=== PATIENT | female | born 1975 | race Asian ===

== ENCOUNTER → 2019-05-21 10:54 | Outpatient (CLI) | payer BC, SELFPAY ==
--- NOTE | 2019-05-21 11:00 | CT_ITS ---
STUDY: CT MAXILLOFACIAL SINUSES REASON FOR EXAM: Female, 43 years old. Facial pain RADIATION DOSAGE (If Supplied By Facility): CTDIvol = ( 33.06 ) mGy, DLP = ( 722.28 ) mGycm TECHNIQUE: The patient was scanned in a multi detector CT scanner. High resolution axial imaging was performed without the administration of intravenous contrast material. Sagittal and coronal images were reconstructed. Individualized dose optimization techniques were used for this CT. COMPARISON: None. FINDINGS: FRONTAL SINUSES: Frontal sinuses are diminutive. ETHMOIDAL SINUSES: Is minimal ethmoid sinus mucosal thickening. MAXILLARY SINUSES: Normal aeration, without mucosal inflammatory disease. SPHENOIDAL SINUSES: Normal aeration, without mucosal inflammatory disease. There is patency of the bilateral maxillary infundibuli with normal uncinate processes, ethmoid bullae, and hiatus semilunaris. Normal bilateral middle turbinates. Normal bilateral inferior turbinates. Normal midline nasal septum. There is patency of the bilateral nasal airways. There is a visualized nasal bone prosthesis. The visualized osseous structures are normal. The visualized bilateral orbital contents are normal. The visualized cerebral and middle spheres appear grossly normal. The ventricles are symmetric there is no visualized midline shift edema or visualized hemorrhage. CT/Sinus/Facial Bone IMPRESSION: Minimal sinusitis ethmoid sinuses. Nasal bone prosthesis. The visualized brain parenchyma appears grossly normal. Electronically Signed: Ana Maria Colón MD at 11:54 EDT Tel , Service support ,
== END ==
LOC: CT 10:57
PROVIDERS: Referring Provider Otolaryngology; Visit Provider Otolaryngology
DX: R51 Headache (principal)
CPT/HCPCS: 70486

== ENCOUNTER → 2019-09-30 11:22 | Outpatient (CLI) | payer BC, SELFPAY ==
[2015-07-30 16:13] VITALS: BMI 26.1
[2019-09-30 14:25] LABS: Absolute Lymphocyte Count 2.98 X10^3/uL (0.83-4.51); Absolute Neutrophil Count 5.8 X10^3/uL (2.0-7.7); Basophil# 0.07 X10^3/uL; Basophil% 0.6 % (0-1); Hematocrit 42.5 % (37-47); Hemoglobin 13.6 g/dL (12.0-15.0); Lymphocyte # 2.98 X10^3/ul (4.0); Lymphocyte % 27.5 % (19-41); Mean Corpuscular Hgb 27.9 pg (27.0-32.0); Mean Corpuscular Volume 87.3 fL (81-99); Mean Platelet Vol. 10.1 fl (6.2-12.0); Monocyte# 0.64 X10^3/uL; Monocyte% 5.9 % (0-10); NRBC Flagged by Analyzer 0 % (0-5); Neutrophil # 5.78 X10^3/uL (2.7-7.7); Neutrophil % 53.4 % (47-70); Platelet Count 408 K/mm3 (150-450); RBC Distribution Width CV 13.3 % (11.6-14.6); RBC Distribution Width SD 42.6 fl (35.1-43.9); Red Blood Count 4.87 M/mm3 (4.2-5.4); White Blood Count 10.8 K/mm3 (4.4-11.0)
[2019-09-30 14:41] LABS: Vitamin B12 720 pg/mL (211-911)
[2019-09-30 14:43] LABS: AST(SGOT) 18 U/L (15-37); Alanine Aminotransfer ALT/SGPT 34 U/L (13-56); Albumin, Serum 3.8 g/dL (3.2-5.0); Alkaline Phosphatase 42 U/L (45-117); Anion Gap 4 (5-15); BUN 14 mg/dL (7-18); Calcium,Total 8.6 mg/dL (8.5-10.1); Chloride 110 mmol/L (98-107); Creatinine, Serum 0.61 mg/dL (0.55-1.02); EST Glomerular Filtration Rate 113 mL/min (>60); Est Glom Filt Rate - Afr Amer 137 mL/min (>60); Ferritin 48 ng/mL (8-252); Globulin 3.7 g/dL (2.2-4.2); Glucose 77 mg/dL (74-106); Iron 114 ug/dL (50-170); Iron Binding Capacity,Total 311 ug/dL (250-450); Potassium 3.7 mmol/L (3.5-5.1); Protein, Total 7.5 g/dL (6.4-8.2); Sodium Level 140 mmol/L (136-145); Thyroid Stim Hormone (TSH) 1.51 uIU/mL (0.358-3.74)
== END ==
PROVIDERS: PCP Family Medicine; Referring Provider Family Medicine; Visit Provider Family Medicine
DX: R42 Dizziness and giddiness (principal); R30.0 Dysuria; R45.89 Other symptoms and signs involving emotional state; I10 Essential (primary) hypertension; N93.9 Abnormal uterine and vaginal bleeding, unspecified
CPT/HCPCS: 36415; 80053; 82607; 82728; 83540; 83550; 84443; 85025; 87077; 87086; 87088; 87186

== ENCOUNTER → 2019-10-03 10:19 | Outpatient (CLI) | payer BC, SELFPAY ==
--- NOTE | 2019-10-03 10:24 | US_ITS ---
STUDY: ULTRASOUND OF THE FEMALE PELVIS - COMPLETE REASON FOR EXAM: Female, 44 years old. PELVIC PAIN/ BLEEDING DURING INTERCOURSE LMP: Unknown. TECHNIQUE: Transvaginal TECHNICAL QUALITY: Adequate. COMPARISON: None. FINDINGS: The uterus is anteverted and is in a midline position. The uterus measures 7.87 x 5.8 cm x 5.2 cm. There is a Nabothian cyst of the cervix. The endometrium measures 8 mm in thickness, and is hyperechoic. There is no demonstrated endometrial mass. There is a 1.3 cm x 1.6 cm x 1.4 cm fundal fibroid. There is heterogeneous echotexture of the myometrium of the uterus. I.U.D. - The patient does not have an I.U.D. The right ovary is visualized. The right ovary measures 3.3 cm x 2.8 cm x 1.3 cm. There is no right ovarian cyst or ovarian mass. There is no visualized right adnexal mass or complex lesion. There is normal arterial and normal venous vascularity. The left ovary is visualized. The left ovary measures 3 cm x 2.8 cm x 1.3 cm. There is no left ovarian cyst or ovarian mass. There is no visualized left adnexal mass or complex lesion. There is normal arterial and normal venous vascularity. There is no fluid in the cul-de-sac. Polycystic ovary disease: No. US/Transvaginal Non- IMPRESSION: Small fundal fibroid. Electronically Signed: Bautista Mckinney, at 15:25 EST , Service support ,
[2019-10-07 03:06] LABS: Beef <0.10 kU/L (Class 0); Corn <0.10 kU/L (Class 0); Egg, Whole <0.10 kU/L (Class 0); Milk (Cow) <0.10 kU/L (Class 0); Peanut <0.10 kU/L (Class 0); Pork <0.10 kU/L (Class 0); Soybean <0.10 kU/L (Class 0); Wheat 0.12 kU/L (Class 0/I)
[2019-10-07 05:06] LABS: Alternaria tenuis <0.10 kU/L (Class 0); Ash, White 0.12 kU/L (Class 0/I); Aspergillus fumigatus <0.10 kU/L (Class 0); Bermuda Grass 0.19 kU/L (Class 0/I); Birch <0.10 kU/L (Class 0); Black Walnut <0.10 kU/L (Class 0); Cat Hair / Dander,Stand <0.10 kU/L (Class 0); Cedar, Mountain 0.14 kU/L (Class 0/I); Cladosporium herbarum <0.10 kU/L (Class 0); Cockroach, American 0.61 kU/L (Class II); Cottonwood <0.10 kU/L (Class 0); D farinae Mite 0.36 kU/L (Class I); Dog Epithelia <0.10 kU/L (Class 0); Elm, American White <0.10 kU/L (Class 0); Immunoglobulin E 214 IU/mL (6-495); Maple/Box Elder <0.10 kU/L (Class 0); Mulberry, White <0.10 kU/L (Class 0); Oak, White <0.10 kU/L (Class 0); Pecan <0.10 kU/L (Class 0); Penicillium Notatum <0.10 kU/L (Class 0); Pigweed, Rough <0.10 kU/L (Class 0); Ragweed, Short/Common 0.14 kU/L (Class 0/I); Russian Thistle 0.17 kU/L (Class 0/I); Sheep Sorrel 0.23 kU/L (Class 0/I); Sycamore, American 0.12 kU/L (Class 0/I); Timothy Grass 0.13 kU/L (Class 0/I)
[2019-10-07 11:27] LABS: Mouse Urine <0.10 kU/L (Class 0)
[2019-10-07 11:28] LABS: Chocolate <0.10 kU/L (Class 0)
== END ==
LOC: US 10:21
PROVIDERS: PCP Family Medicine; Referring Provider Family Medicine; Visit Provider Family Medicine
DX: N93.9 Abnormal uterine and vaginal bleeding, unspecified (principal); R30.0 Dysuria
CPT/HCPCS: 36415; 76830; 82785; 86003; 86005; 87177; 87209

== ENCOUNTER → 2020-04-19 10:25 | Outpatient (CLI) | payer MEDICAID, SELFPAY ==
[2015-07-30 16:13] VITALS: BMI 26.1
[2020-04-19 12:25] LABS: Absolute Lymphocyte Count 2.92 X10^3/uL (0.83-4.51); Absolute Neutrophil Count 4.6 X10^3/uL (2.0-7.7); Eosinophil# 1.57 X10^3/uL; Eosinophils% 16.1 % (0-5); Hematocrit 43.8 % (37-47); Hemoglobin 14.3 g/dL (12.0-15.0); Lymphocyte # 2.92 X10^3/ul (4.0); Lymphocyte % 29.9 % (19-41); Mean Corp Hgb Conc 32.6 g/dL (32-36); Mean Corpuscular Hgb 28.1 pg (27.0-32.0); Mean Corpuscular Volume 86.1 fL (81-99); Mean Platelet Vol. 9.9 fl (6.2-12.0); Monocyte# 0.51 X10^3/uL; Monocyte% 5.2 % (0-10); NRBC Flagged by Analyzer 0 % (0-5); Neutrophil % 47.1 % (47-70); Platelet Count 444 K/mm3 (150-450); RBC Distribution Width CV 13.2 % (11.6-14.6); RBC Distribution Width SD 41.6 fl (35.1-43.9); Red Blood Count 5.09 M/mm3 (4.2-5.4); White Blood Count 9.8 K/mm3 (4.4-11.0)
[2020-04-19 12:51] LABS: ALB/GLOB Ratio 0.9 RATIO (0.9-2.4); AST(SGOT) 49 U/L (15-37); Alanine Aminotransfer ALT/SGPT 81 U/L (13-56); Albumin, Serum 3.9 g/dL (3.2-5.0); Alkaline Phosphatase 55 U/L (45-117); Anion Gap 6 (5-15); BUN 10 mg/dL (7-18); BUN/Creat Ratio 15.8 RATIO (10-20); Calcium,Total 8.5 mg/dL (8.5-10.1); Chloride 109 mmol/L (98-107); Creatinine, Serum 0.63 mg/dL (0.55-1.02); EST Glomerular Filtration Rate 108 mL/min (>60); Est Glom Filt Rate - Afr Amer 131 mL/min (>60); Globulin 4.2 g/dL (2.2-4.2); Glucose 91 mg/dL (74-106); Potassium 3.5 mmol/L (3.5-5.1); Protein, Total 8.1 g/dL (6.4-8.2); Sodium Level 139 mmol/L (136-145); Thyroid Stim Hormone (TSH) 1.62 uIU/mL (0.358-3.74)
== END ==
PROVIDERS: PCP Family Medicine; Referring Provider Family Medicine; Visit Provider Family Medicine
DX: R35.8 Other polyuria (principal)
CPT/HCPCS: 36415; 80053; 84443; 85025

== ENCOUNTER → 2020-10-15 16:10 | Outpatient (CLI) | payer MEDICAID, SELFPAY ==
[2015-07-30 16:13] VITALS: BMI 26.1
[2020-10-15 16:17] LABS: Bacteria 0 SEEN /hpf (None Seen); Mucous, Urine 0 SEEN /hpf (<or=2+); Red Blood Cells-Urine 0 SEEN /hpf (0-5); White Blood Cells 0 SEEN /hpf (0-5)
[2020-10-15 18:37] LABS: Color, Urine Yellow (Yellow); Glucose, Dipstick Normal (Normal); Ketone-Dipstick Negative (Negative); Leukocyte Esterase-Dipstick Negative /ul (Negative); Nitrite-Dipstick Negative (Negative); Occult Blood-Urine 10 /ul (Negative); Protein-Dipstick Negative (Negative); Urine Bilirubin Dipstick Negative (Negative); Urine Clarity Clear (Clear); Urine Urobilinogen Normal (Normal)
[2020-10-15 18:59] LABS: Squamous Epithelial Cells - UA 0-5 SEEN /hpf (5-10)
[2020-10-15 19:05] LABS: ALB/GLOB Ratio 0.9 RATIO (0.9-2.4); AST(SGOT) 61 U/L (15-37); Alanine Aminotransfer ALT/SGPT 70 U/L (13-56); Albumin, Serum 3.9 g/dL (3.2-5.0); Alkaline Phosphatase 61 U/L (45-117); Anion Gap 9 (5-15); BUN 14 mg/dL (7-18); BUN/Creat Ratio 21.4 RATIO (10-20); CRP, High Sensitivity Cardiac 2.31 mg/L; Calcium,Total 8.7 mg/dL (8.5-10.1); Chloride 105 mmol/L (98-107); Cholesterol 260 mg/dL (200); Creatinine, Serum 0.66 mg/dL (0.55-1.02); EST Glomerular Filtration Rate 103 mL/min (>60); Est Glom Filt Rate - Afr Amer 125 mL/min (>60); Globulin 4.2 g/dL (2.2-4.2); Glucose 68 mg/dL (74-106); High Density Lipoprotein 43 mg/dL; Potassium 3.6 mmol/L (3.5-5.1); Protein, Total 8.1 g/dL (6.4-8.2); Sodium Level 137 mmol/L (136-145); Triglycerides 252 mg/dL; Very Low Density Lipoprotein 50 mg/dL (5-40)
[2020-10-16 09:29] LABS: Hepatitis C Antibody Non-Reactive (Nonreactive)
[2020-10-18 15:45] LABS: HPV Reflexed? NOT INDICATED
== END ==
PROVIDERS: PCP Family Medicine; Referring Provider Family Medicine; Visit Provider Family Medicine
DX: Z13.220 Encounter for screening for lipoid disorders (principal); Z13.6 Encounter for screening for cardiovascular disorders; Z11.59 Encounter for screening for other viral diseases; I10 Essential (primary) hypertension
CPT/HCPCS: 36415; 80053; 80061; 81001; 86141; 86803; 87491; 87591; 88175; G0145

== ENCOUNTER → 2020-10-22 08:21 | Outpatient (CLI) | payer BC, MEDICAID, SELFPAY ==
--- NOTE | 2020-10-22 08:24 | US_ITS ---
STUDY: ABDOMINAL ULTRASOUND - RIGHT UPPER QUADRANT REASON FOR VISIT: Female, 45 years old elevated liver enzymes TECHNIQUE: Ultrasound evaluation of the right upper quadrant was performed with real-time and static hamilton-scale imaging. TECHNICAL QUALITY: Adequate. COMPARISON: None. FINDINGS: Liver: The liver measures 13.8 cm. There is normal echogenicity of the liver. The bile ducts are within normal limits. There is hepatic color flow. The direction of portal flow is hepatopetal. There is no demonstrated mass lesion. Gallbladder: Normal distended gallbladder. The gallbladder wall measures 3 mm. There is a negative sonographic Figueroa''s sign. There is no pericholecystic fluid. There are no gallstones. Common Bile Duct (C.B.D.): The common bile duct measures 4.0 mm. Pancreas: Normal size of the head, body and tail of the pancreas. There is normal echogenicity of the pancreas. There is no demonstrated pancreatic mass or cyst. Right Kidney: Normal size of the right kidney. The right kidney measures 11.4 cm x 5.2 cm x 4.5 cm. Normal renal cortex. The right cortex measures 1.4 cm. There is no demonstrated renal mass or cyst. There is no right hydronephrosis. US/Abdomen Limited IMPRESSION: Normal right upper quadrant ultrasound examination. Electronically Signed: Bautista Mckinney MD at 10:11 EST , Service support ,
== END ==
PROVIDERS: PCP Family Medicine; Referring Provider Family Medicine; Visit Provider Family Medicine
DX: R74.8 Abnormal levels of other serum enzymes (principal)
CPT/HCPCS: 76705

== ENCOUNTER → 2020-10-29 | Outpatient (CLI) | payer BC, MEDICAID, SELFPAY ==
--- NOTE | 2020-10-29 | CYSPIN_PTH ---
PATIENT: JAMES HADLEY LOC: [facility] U#:[id number] AGE/SX: 45/F ROOM: RE10/29/[address]: Dr. iKrstie Lo MD : 1975 BED: DIS: 10/29/2020 SPEC #: [id number] RECD: 10/30/20 07:46 STATUS: AUSTIN REReggie #: [id number] HOLLY: 10/29/20 00:[address]: Kirstie Lo DEPT: CYTOLOGY RECD BY: Amanda Shipley ENTERED: 10/30/20 07:46 SP TYPE: CYSPIN FL OTHR DR: Dr. Robert Claire MD Tissues: Urine Procedures: Pap Stain (control) Special Stain Group II Cytospin Fluid HEADER OPERATION: Not noted PRE-OP DIAGNOSIS: Gross hematuria TISSUE SUBMITTED: Urine for cytology DIAGNOSIS CYTOLOGY Urine for cytology (cytospin): Negative for malignant cells. See comment. AMBER:agrcia 10/30/2020 COMMENT The specimen primarily contains squamous epithelial cells. Clinical correlation is suggested. CYTOLOGY STUDY Slides are reviewed. CYTOLOGY GROSS Received is 50 ml of yellow cloudy fluid labeled with the patient's name and and designated per the requisition as urine. Submitted for cytology preparation. / garcia 10/30/2020 TC:5 CPT: 65445
[2020-10-29 18:12] LABS: Cytology, Body Fluid / CSF SEE PATHOLOGY REPORT
== END | disposition home or self-care (01) ==
PROVIDERS: PCP Family Medicine; Referring Provider Urology; Visit Provider Urology
DX: R31.0 Gross hematuria (principal)
CPT/HCPCS: 88108; 88313

== ENCOUNTER → 2020-11-21 16:56 | Outpatient (CLI) | payer BC, MEDICAID, SELFPAY ==
--- NOTE | 2020-11-21 16:58 | CT_ITS ---
We are attempting to reach an attending provider to discuss findings. An addendum with communication details will be sent when the communication is complete. INDICATION: GROSS HEMATURIA EXAMINATION: CT Abdomen And Pelvis WO/W Contrast Injection (CT Urogram) TECHNIQUE: Helically acquired images were obtained of the abdomen and pelvis before and after IV contrast. Standard CT urogram protocol was followed. A radiation dose optimization technique was used for this scan. IV Contrast dosage and agent: 100 cc ISOVUE-300 Oral contrast: No COMPARISON: 06/08/2015. FINDINGS: Visualized lung bases: Unremarkable Liver: Diffusely hypodense consistent with fatty liver. Gallbladder: Unremarkable Spleen: Unremarkable Pancreas: Unremarkable Adrenal Glands: Unremarkable Kidneys: Unremarkable Ureters: Unremarkable GI Tract: The appendix is dilated measuring up to 1.3 cm. There is periappendiceal fat stranding. Tiny appendicolith is seen in the tip of the appendix. No free air or free fluid. Vasculature: Unremarkable Lymphadenopathy: None Peritoneum: No ascites. Bladder: Collapsed. Reproductive organs: Multi fibroid uterus. Tampon seen within the vagina. Bones/Soft tissues: No suspicious osseous or soft tissue lesions CT/CT Abd/Pelvis W/WO Contrast IMPRESSION: No finding to explain patient''s gross hematuria. Acute nonruptured appendicitis. Multi fibroid uterus. Electronically Signed: Tyshawn Moreira MD at 22:49 EDT Tel , Service support ,
== END ==
PROVIDERS: PCP Family Medicine; Referring Provider Urology; Visit Provider Urology
DX: R31.0 Gross hematuria (principal)
CPT/HCPCS: 74178; Q9967; A4216

== ENCOUNTER 2020-11-22 12:08 | Observation (INO) | payer BC, MEDICAID, SELFPAY ==
[2020-11-22] VITALS (11 sets, daily range): BP systolic 123–149; BP diastolic 68–94; PULSE 64–92; RESP 16–24; TEMP 36.2–36.6; O2SAT 94–100; BMI 25.9; BMI 26.0
--- NOTE | 2020-11-22 | APP_PTH ---
PATIENT: JAMES HADLEY LOC: MS3 U#:[id number] AGE/SX: 45/F ROOM: [facility] RE11/22/[address]: Dr. Prosper Pete MD : 1975 BED: 1 DIS: 11/23/2020 SPEC #: [id number] RECD: 11/23/20 07:34 STATUS: AUSTIN REReggie #: [id number] HOLLY: 11/22/20 00:[address]: Prosper Pete DEPT: SURGICAL PATHOLOGY RECD BY: Papa Kirk ENTERED: 11/23/20 07:59 SP TYPE: APPENDIX OTHR DR: Dr. Robert Claire MD Tissues: Appendix, NOS Procedures: Surgery Specimen Level III HEADER OPERATION: Laparoscopic appendectomy PRE-OP DIAGNOSIS: Appendicitis TISSUE SUBMITTED: Appendix MICROSCOPIC DIAGNOSIS Appendix, appendectomy: Acute appendicitis. AM:garcia 11/26/2020 MICROSCOPIC DESCRIPTION Slides are reviewed. GROSS DESCRIPTION Received in fixative is one container labeled with the patient's name and designated appendix. The specimen consists of an L-shaped appendix measuring 7.5 cm in length and up to 1 cm in diameter. The attached periappendiceal adipose tissue measures up to 1 cm in width. No obvious perforation is identified. The lumen contains hemorrhagic material. No fecalith is identified. Senior Software Qa Engineer sections are submitted in two cassettes. / SJ:rg 11/23/20 TC:2 CPT: 13606
--- NOTE | 2020-11-22 12:36 | ED.VIS.GEN ---
History of Present Illness Chief Complaint: Abd Pain Narrative: This patient is a 45-year-old female who was sent into the emergency department due to an abnormal CT. The patient has a history of chronic left lower quadrant abdominal pain for at least a year. She also has intermittent hematuria. She had an outpatient CT of the abdomen by urogynecology, Dr. Slaughter. This was read as acute appendicitis with a small appendicolith appendiceal dilatation and periappendiceal inflammatory change. Patient notes that she had a CT last June which was also read as possible appendicitis but ultimately not felt to be due to acute appendicitis. Past Medical History - Allergies and Home Meds Allergies/Adverse Reactions: Allergies No Known Allergies Allergy (Verified 11/22/20 12:11) Primary Care Physician: Robert Claire MD [Primary Care Provider] - Smoking Status: Never smoker Physical Exam Vital Signs/Narrative: Vital Signs Temp Pulse Resp BP Pulse Ox 11/22/20 12:09 97.3 F L 79 16 144/90 H 100 Diagnostic/Tx/Re-eval 11/22/20 12:39 Abdomen/Pelvis WITH Contrast [CT] Stat Laboratory Results 11/22/20 11/22/20 11/22/20 12:25 13:17 13:17 WBC 9.4 RBC 5.04 Hgb 14.3 Hct 44.0 MCV 87.3 MCH 28.4 MCHC 32.5 RDW Std Deviation 45.1 H RDW Coeff of Ward 14.0 Plt Count 410 MPV 9.6 Immature Gran % (Auto) 0.300 Neut % (Auto) 44.1 L Lymph % (Auto) 31.7 [place] % (Auto) 6.1 Eos % (Auto) 17.2 H Baso % (Auto) 0.6 Absolute Neuts (auto) 4.2 Absolute Lymphs (auto) 2.98 Nucleated RBC % 0 Sodium 140 Potassium 3.7 Chloride 104 Carbon Dioxide 30.0 Anion Gap 6 BUN 10 Creatinine 0.71 Estim Creat Clear Calc 71.12 Est GFR (MDRD) Af Amer 113 Est GFR (MDRD) Non-Af 94 BUN/Creatinine Ratio 14.0 Glucose 106 Calcium 9.2 Urine Color Yellow Urine Clarity Clear Urine pH 6.0 Ur Specific [place] 1.030 Urine Protein 30 H Urine Glucose (UA) Normal Urine Ketones Negative Urine Occult Blood 250 H Urine Nitrite Negative Urine Bilirubin Negative Urine Urobilinogen 1 H Ur Leukocyte Esterase Negative Urine RBC 10-25 SEEN Urine WBC 0-5 SEEN Ur Squamous Epith Cells 0 SEEN Urine Bacteria 1+ Urine Mucus 0 SEEN - Medical Decision Making CBC and BMP are unremarkable. Urinalysis shows blood but the patient has had intermittent hematuria and is also currently on her menstrual period. I did communicate with general surgery on-call, Dr. Pete through the OR nurse. He requests a repeat CT scan with oral contrast. This is pending at the time of this dictation. Patient will be signed out to the oncoming physician. ED Disposition - Plan for ED Patient: Diagnosis: Abdominal pain Referrals: Robert Claire MD [Primary Care Provider] -
--- NOTE | 2020-11-22 12:39 | CT_ITS ---
STUDY: CT ABDOMEN AND PELVIS WITH CONTRAST REASON FOR EXAM: Female, 45 years old. Abdominal pain -- IV PO Contrast. Questionable appendicitis. Left lower quadrant pain. RADIATION DOSAGE (If Supplied By Facility): CTDIvol = ( 9.61 ) mGy, DLP = ( 453.77 ) mGycm TECHNIQUE: Transaxial images were obtained from the dome of the diaphragm to the symphysis pubis with oral contrast. Oral and amp; IV Gastrografin and amp; 100mL Isovue-300 was administered. Sagittal and coronal images were reconstructed. Individualized dose optimization techniques were used for this CT. COMPARISON: Comparison is made with prior study dated 11/21/2020. FINDINGS: The visualized lung bases are unremarkable. The visualized portions of the heart are within normal limits. There is decreased attenuation of the liver consistent with steatosis. Normal gallbladder and extrahepatic biliary system. Normal spleen. Normal pancreas. Normal bilateral adrenal glands. Normal right kidney. Normal left kidney. Normal visualized stomach. Normal small intestine. Normal colon. There is a tubular, thick-walled appendix (>7mm), consistent with acute appendicitis. Mild degree of increased markings in the surrounding peritoneal fat. Normal abdominal aorta. Normal inferior vena cava. Normal retroperitoneum. Normal urinary bladder. Enlarged fibroid uterus. Normal abdominal wall. Normal osseous structures. CT/Abdomen/Pelvis WITH Contrast IMPRESSION: Thick-walled tubular appendix in keeping with a noncomplicated appendicitis. Electronically Signed: Bautista Mckinney MD at 14:50 EDT , Service support ,
[2020-11-22 12:53] LABS: Mucous, Urine 0 SEEN /hpf (<or=2+); Squamous Epithelial Cells - UA 0 SEEN /hpf (5-10)
[2020-11-22 12:59] LABS: Color, Urine Yellow (Yellow); Glucose, Dipstick Normal (Normal); Ketone-Dipstick Negative (Negative); Leukocyte Esterase-Dipstick Negative /ul (Negative); Nitrite-Dipstick Negative (Negative); Occult Blood-Urine 250 /ul (Negative); Protein-Dipstick 30 mg/dl (Negative); Urine Bilirubin Dipstick Negative (Negative); Urine Clarity Clear (Clear); Urine Urobilinogen 1 mg/dl (Normal)
[2020-11-22 13:18] LABS: Bacteria 1+ /hpf (None Seen); Red Blood Cells-Urine 10-25 SEEN /hpf (0-5); White Blood Cells 0-5 SEEN /hpf (0-5)
[2020-11-22 13:26] LABS: Absolute Lymphocyte Count 2.98 X10^3/uL (0.83-4.51); Absolute Neutrophil Count 4.2 X10^3/uL (2.0-7.7); Basophil# 0.06 X10^3/uL; Basophil% 0.6 % (0-1); Eosinophil# 1.62 X10^3/uL; Eosinophils% 17.2 % (0-5); Hemoglobin 14.3 g/dL (12.0-15.0); Lymphocyte # 2.98 X10^3/ul (4.0); Lymphocyte % 31.7 % (19-41); Mean Corp Hgb Conc 32.5 g/dL (32-36); Mean Corpuscular Hgb 28.4 pg (27.0-32.0); Mean Corpuscular Volume 87.3 fL (81-99); Mean Platelet Vol. 9.6 fl (6.2-12.0); Monocyte# 0.57 X10^3/uL; Monocyte% 6.1 % (0-10); NRBC Flagged by Analyzer 0 % (0-5); Neutrophil # 4.15 X10^3/uL (2.7-7.7); Neutrophil % 44.1 % (47-70); Platelet Count 410 K/mm3 (150-450); RBC Distribution Width SD 45.1 fl (35.1-43.9); Red Blood Count 5.04 M/mm3 (4.2-5.4); White Blood Count 9.4 K/mm3 (4.4-11.0)
[2020-11-22 13:40] LABS: Anion Gap 6 (5-15); BUN 10 mg/dL (7-18); Calcium,Total 9.2 mg/dL (8.5-10.1); Chloride 104 mmol/L (98-107); Creatinine, Serum 0.71 mg/dL (0.55-1.02); EST Glomerular Filtration Rate 94 mL/min (>60); Est Glom Filt Rate - Afr Amer 113 mL/min (>60); Estimated Creatinine Clearance 71.12 ml/min; Glucose 106 mg/dL (74-106); Potassium 3.7 mmol/L (3.5-5.1); Sodium Level 140 mmol/L (136-145)
--- NOTE | 2020-11-22 15:33 | ED.DCSUM_ITS ---
- ER Visit Summary Date of Service: 11/22/20 Chief Complaint: [Abdominal pain] History of Present Illness: The patient is a 45 F [presented with abdominal pain and care turned over to me awaiting CT results and final disposition. Patient apparently had a CT scan of the abdomen pelvis performed yesterday that showed suspected acute appendicitis. Patient had lab work today in the ER and it was normal. Patient was discussed with surgeon on-call by Dr. Charles Thacker who fully evaluated patient initially. It was decided to obtain a CT scan with p.o. contrast to reevaluate.] Physical Examination: HEENT-PERRLA, EOMI. Cranial nerves II through XII grossly intact. TMs clear. Mucous membranes moist. No adenopathy. Cardiovascular-regular rate and rhythm without murmur or ectopy Lungs-clear to auscultation, chest wall stable without crepitus or subcu emphysema Abdomen-normoactive bowel sounds, soft. Patient does have some tenderness on deep palpation over the right lower quadrant with minimal guarding. There is no rebound, rigidity, or cranial signs. Patient also has some mild tenderness over the left lower quadrant. Extremities-intact ?4, normal range of motion, normal pulses, atraumatic] Test Results: [CT scan of the abdomen pelvis with p.o. contrast noted that patient had a thickened appendix consistent with uncomplicated acute appendicitis.] Emergency Department Course and Treatment: [Patient is discussed with general surgeon on-call who presented to the emergency department to evaluate patient.] Treatment Plan: [Surgeon will take patient to the OR for appendectomy] Disposition: [Admit] Impression: [Abdominal pain Acute appendicitis] This note was generated with [employer] dictation software. It may contain incorrect words, spelling, and punctuation that were not noted in review of the chart prior to signing ED Disposition - Plan for ED Patient: Diagnosis: Abdominal pain Instructions: ED Hematuria Referrals: Robert Claire MD [Primary Care Provider] -
--- NOTE | 2020-11-22 15:41 | NURSING ---
OR USHA DIOP
--- NOTE | 2020-11-22 16:36 | HP.PCM_ITS ---
Problem List (1) Appendicitis Status: Acute Qualifiers: Appendicitis type: unspecified Qualified Code(s): K37 - Unspecified appendicitis History of Present Illness Date of Admission: 11/22/20 The patient is a 45 year old F here with an abnormal CT scan. The patient has been having left lower quadrant pain and hematuria. Patient had an outpatient CT scan yesterday which showed appendicitis. She is complain of left lower quadrant pain but she does have right lower quadrant pain with palpated. She is not having nausea vomiting or fevers or chills. Past Medical History Medical History: Medical History (Last Updated 11/22/20 @ 16:[address] 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 Prosper Pete MD) H/O: Z98.891 Smoking Status: Never smoker Tobacco Use: Non-smoker Review of Systems Constitutional: Denies: Anorexia, Fever Cardiovascular: Denies: Chest Pain Respiratory: Denies: Cough, Shortness of Breath Gastrointestinal: Reports: Abdominal Pain. Denies: Diarrhea, Hematemesis, Nausea, Vomiting Genitourinary: Reports: Hematuria Skin: Denies: Jaundice Neurological: Denies: Balance problems Psychiatric: Denies: Anxiety VTE Information - Inpt Only VTE Present on Admission: No VTE Mechan Device Prophylaxis: SCD's Patient Problems: Active and Suspected Problems (Last Updated 11/22/20 @ 16:[address] Prosper Pete MD) Abdominal pain (Acute) Appendicitis (Acute) - Physical Exam Vitals/I&O's: Vital Signs Temp Pulse Resp BP Pulse Ox 97.9 F 72 18 135/85 H 100 11/22/20 16:32 11/22/20 16:32 11/22/20 16:32 11/22/20 16:32 11/22/20 16:32 Oxygen Delivery Method Room Air Weight: 132 lb 15.02 oz Body Mass Index (BMI) 25.9 General: Alert, Oriented x3 HEENT: Atraumatic Neck: No JVD Lungs: Normal air movement Cardiovascular: Regular rate, Regular Rhythm Abdomen: Soft, Non-Distended, Tender Musculoskeletal: No Muscle Wasting Neurological: Cranial nerves II-XII grossly intact Psych/Mental Status: Normal Affect Microbiology Past 72 Hours 11/22/20 15:30 Mucosa - Nasopharyngeal SARS-CoV-2 Antigen (Rapid) - Final Laboratory Results 11/22/20 12:25: Urine Color Yellow, Urine Clarity Clear, Urine pH 6.0, Ur Specific [place] 1.030, Urine Protein 30 H, Urine Glucose (UA) Normal, Urine Ketones Negative, Urine Occult Blood 250 H, Urine Nitrite Negative, Urine Bilirubin Negative, Urine Urobilinogen 1 H, Ur Leukocyte Esterase Negative, Urine RBC 10-25 SEEN, Urine WBC 0-5 SEEN, Ur Squamous Epith Cells 0 SEEN, Urine Bacteria 1+, Urine Mucus 0 SEEN 11/22/20 12:25: Urine Test Pending 11/22/20 13:17: WBC 9.4, RBC 5.04, Hgb 14.3, Hct 44.0, MCV 87.3, MCH 28.4, MCHC 32.5, RDW Std Deviation 45.1 H, RDW Coeff of Ward 14.0, Plt Count 410, MPV 9.6, Immature Gran % (Auto) 0.300, Neut % (Auto) 44.1 L, Lymph % (Auto) 31.7, [place] % (Auto) 6.1, Eos % (Auto) 17.2 H, Baso % (Auto) 0.6, Absolute Neuts (auto) 4.2, Absolute Lymphs (auto) 2.98, Nucleated RBC % 0 11/22/20 13:17: Sodium 140, Potassium 3.7, Chloride 104, Carbon Dioxide 30.0, Anion Gap 6, BUN 10, Creatinine 0.71, Estim Creat Clear Calc 71.12, Est GFR (MDRD) Af Amer 113, Est GFR (MDRD) Non-Af 94, BUN/Creatinine Ratio 14.0, Glucose 106, Calcium 9.2 Clinical Impression(s) from Imaging Studies Abdomen/Pelvis CT 11/22/20 12:39 IMPRESSION: Thick-walled tubular appendix in keeping with a noncomplicated appendicitis. Electronically Signed: Bautista Mckinney MD at 14:50 EDT , Service support , Assessment/Plan All Active Problems (Last Updated 11/22/20 @ 16:[address] Prosper Pete MD) Abdominal pain (Acute) Appendicitis (Acute) 45-year-old female with possible acute appendicitis 1. The patient had outpatient CT scan that showed possible appendicitis. She presented to the emergency room and a repeat CT with oral contrast is still concerning for acute appendicitis with thickening of the appendix. There is also periappendiceal stranding. The patient has a normal white count and no pain on the right lower quadrant unless deeply palpated. She also reports that she had a possible appendicitis years ago which was not treated with surgery. The patient is having hematuria and left lower quadrant pain. I explained that I am unsure as to the etiology of her thickened appendix. I recommended appendectomy. The thickened appendix may represent a malignancy versus acute appendicitis versus benign etiology but the only way to make sure would be to remove it and sent for pathology. I discussed the possibility that she does not have acute appendicitis and that this would not resolve her left lower quadrant pain or hematuria. The patient understands. I discussed the procedure in detail as well as the risks including but not limited to bleeding, infection, injury to surrounding organs. Patient understands risks and is when to proceed with laparoscopic appendectomy. Prosper Pete MD Pager: [facility] [address] [place] [address], [address] [place] [address] Office:
[2020-11-22] MEDS: Lactated Ringers 1,000 ML 100 ML IV ×2 (16:45→18:36)
[2020-11-22 16:52] LABS: Internal QC Validated? YES +Cl - CLEAR BKGD; Pregnancy, Urine Negative Negative
[2020-11-22] MEDS: Bupiv/Epi 0.25% 30 ML Vial (18:21)
--- NOTE | 2020-11-22 18:33 | PCM.OPRPT ---
Problem List (1) Appendicitis Status: Acute Qualifiers: Appendicitis type: unspecified Qualified Code(s): K37 - Unspecified appendicitis Report of Operation Date of Procedure: 11/22/20 Pre-Operative Diagnosis: Appendicitis Post-Operative Diagnosis: 1. Appendicitis. 2. Fibroids of the uterus Surgery/Procedure Performed:: Laparoscopic appendectomy Specimen's removed: Appendix Description of Procedure: The patient was brought into the operating room and general anesthesia was induced. The left arm was tucked and the abdomen was prepped and draped in usual sterile fashion. A small midline incision was made superior to the umbilicus and deepened to the level of the fascia. The fascia was elevated and incised. The peritoneum was also elevated and incised. A finger sweep was performed and a balloon trocar was placed into the abdomen and inflated. The abdomen was insufflated to 15 mmHg and the camera was inserted and the abdomen was inspected for any injuries upon entering the abdomen. There were none. The patient appeared to have large fibroids of the uterus and pictures were taken. The patient was placed in Trendelenburg position and a 5 mm ports placed in the left lower quadrant and suprapubic areas under direct visualization. In order to manipulate the colon and the small bowel an additional 5 mm port was placed in the left upper quadrant under direct visualization. The appendix was retrocecal and tightly adherent to the posterior lateral aspect of the cecum. The pericolonic fat was incised sharply using scissors and the appendix was dissected free from the cecum and the vessels were sealed using Enseal. A stapler was used to come across the base of the appendix. The appendix was then placed in Endo Catch bag and removed through the umbilical incision. The staple line was inspected and found to be hemostatic and intact. The 2 5 mm ports are removed under direct visualization. The balloon trocar was deflated and removed and all the air was removed from the abdomen. The umbilical incision fascia was closed with an 0 Vicryl [id number] suture. The incisions were then irrigated with saline and dried. Local anesthetic was injected into the incision sites. The skin incisions were then closed with interrupted 4-0 Monocryl suture and Steri-Strips. Bandages were applied and the patient was awoken and taken to PACU in stable condition. Patient tolerated the procedure well. - Admit VTE Documentation VTE Mechan Device Prophylaxis: SCD's
--- NOTE | 2020-11-22 20:11 | NURSING ---
As soon as pt arrived to floor she felt like she needed to void. Placed on bedpan. Wanted some privacy to try to void. Instructed to use call light when she was finished.
[2020-11-22] MEDS: Morphine 2 MG/ML Syringe IV (20:42)
[2020-11-22] MEDS: oxyCODONE 5 MG Tablet PO (23:10)
[2020-11-23] VITALS (8 sets, daily range): BP systolic 102–137; BP diastolic 48–73; PULSE 72–99; RESP 14–20; TEMP 36.7–37.5; O2SAT 86–98
[2020-11-23] MEDS: 0.9% Normal Saline 1,000 ML 100 ML IV ×2 (01:17→10:26)
[2020-11-23] MEDS: oxyCODONE 5 MG Tablet PO ×3 (04:21→13:56)
--- NOTE | 2020-11-23 06:32 | PN.SURG_ITS ---
Patient Problems: Active and Suspected Problems (Last Updated 11/22/20 @ 16:[address] Prosper Pete MD) Abdominal pain (Acute) Appendicitis (Acute) Subjective: Patient reports pain is well controlled with no nausea or vomiting - Physical Exam Vitals/I&O's: Vital Signs Temp Pulse Resp BP Pulse Ox 98.2 F 99 18 102/48 L 94 11/23/20 06:15 11/23/20 06:15 11/23/20 06:15 11/23/20 06:15 11/23/20 06:15 Oxygen Delivery Method Room Air Weight: 132 lb 15.02 oz Body Mass Index (BMI) 25.9 Intake and Output for Last 24 Hours 11/21/20 11/22/20 11/23/20 23:59 23:59 23:59 Intake Total 1100 / 1100 1900 / 1900 Output Total 1150 / 1150 Balance 1100 / 1100 750 / 750 General: Alert, Oriented x3 Abdomen: Distended Microbiology Past 72 Hours 11/22/20 15:30 Mucosa - Nasopharyngeal SARS-CoV-2 Antigen (Rapid) - Final Laboratory Results 11/22/20 12:25: Urine Color Yellow, Urine Clarity Clear, Urine pH 6.0, Ur Specific [place] 1.030, Urine Protein 30 H, Urine Glucose (UA) Normal, Urine Ketones Negative, Urine Occult Blood 250 H, Urine Nitrite Negative, Urine Bilirubin Negative, Urine Urobilinogen 1 H, Ur Leukocyte Esterase Negative, Urine RBC 10-25 SEEN, Urine WBC 0-5 SEEN, Ur Squamous Epith Cells 0 SEEN, Urine Bacteria 1+, Urine Mucus 0 SEEN 11/22/20 12:25: Urine Test Negative 11/22/20 13:17: WBC 9.4, RBC 5.04, Hgb 14.3, Hct 44.0, MCV 87.3, MCH 28.4, MCHC 32.5, RDW Std Deviation 45.1 H, RDW Coeff of [place] 14.0, Plt Count 410, MPV 9.6, Immature Gran % (Auto) 0.300, Neut % (Auto) 44.1 L, Lymph % (Auto) 31.7, [place] % (Auto) 6.1, Eos % (Auto) 17.2 H, Baso % (Auto) 0.6, Absolute Neuts (auto) 4.2, Absolute Lymphs (auto) 2.98, Nucleated RBC % 0 11/22/20 13:17: Sodium 140, Potassium 3.7, Chloride 104, Carbon Dioxide 30.0, Anion Gap 6, BUN 10, Creatinine 0.71, Estim Creat Clear Calc 71.12, Est GFR (MDRD) Af Amer 113, Est GFR (MDRD) Non-Af 94, BUN/Creatinine Ratio 14.0, Glucose 106, Calcium 9.2 Current Medications Acetaminophen (Acetaminophen 325 Mg Tablet) 650 mg PO Q4H PRN PRN PRN Reason: PAIN 1-10/FEVER Lactated Ringer's () 1,000 mls @ 100 mls/hr IV .Q10H ZOE Last Infusion: 11/23/20 01:54 Dose: Infused Documented by: Sodium Chloride () 1,000 mls @ 100 mls/hr IV .Q10H [facility] Last Admin: 11/23/20 01:17 Dose: 100 mls/hr Documented by: Morphine Sulfate (Morphine 2 Mg/Ml Syringe) 2 - 4 mg IV Q2H PRN PRN PRN Reason: Pain Score 4-10 Last Admin: 11/22/20 20:42 Dose: 2 mg Documented by: Morphine Sulfate (Morphine 4 Mg/Ml Syringe) 2 - 4 mg IV Q2H PRN PRN PRN Reason: Pain Score 4-10 Ondansetron HCl (Ondansetron 4 Mg/2 Ml Vial) 4 mg IV Q6H PRN PRN PRN Reason: NAUSEA Oxycodone HCl (Oxycodone 5 Mg Tablet) 5 - 10 mg PO Q4H PRN PRN PRN Reason: Pain Score 4-10 Last Admin: 11/23/20 04:21 Dose: 10 mg Documented by: Sodium Chloride (0.9% Saline Lock 10 Ml Syringe) 10 - 40 ml IV UD PRN PRN Reason: SALINE FLUSH Medical Necessity - Tobacco Use Smoking Status: Never smoker Tobacco Use: Non-smoker Assessment/Plan All Active Problems (Last Updated 11/22/20 @ 16:[address] Prosper Pete MD) Abdominal pain (Acute) Appendicitis (Acute) 45-year-old female with appendicitis status post laparoscopic appendectomy 1. The patient reports she passed a tiny amount of gas and she is tolerating clears. She had no nausea or vomiting but she does appear mildly distended. I would like to continue clear liquids through the morning and see how she does and if she starts passing more significant flatus before advancing her diet. Her appendectomy was very complicated and in very close proximity to the colon as I would like to monitor throughout the day for any sign of colonic injury. Prosper Pete MD Pager: [facility] [address] [place] [address], [address] [place] [phone] Office:
[2020-11-23 06:38] LABS: Absolute Lymphocyte Count 1.52 X10^3/uL (0.83-4.51); Absolute Neutrophil Count 10.2 X10^3/uL (2.0-7.7); Basophil# 0.01 X10^3/uL; Basophil% 0.1 % (0-1); Eosinophil# 0.01 X10^3/uL; Eosinophils% 0.1 % (0-5); Hematocrit 38.1 % (37-47); Hemoglobin 12.3 g/dL (12.0-15.0); Lymphocyte # 1.52 X10^3/ul (4.0); Lymphocyte % 12.5 % (19-41); Mean Corp Hgb Conc 32.3 g/dL (32-36); Mean Corpuscular Hgb 27.6 pg (27.0-32.0); Mean Corpuscular Volume 85.6 fL (81-99); Mean Platelet Vol. 9.3 fl (6.2-12.0); Monocyte# 0.37 X10^3/uL; NRBC Flagged by Analyzer 0 % (0-5); Neutrophil # 10.22 X10^3/uL (2.7-7.7); Neutrophil % 83.8 % (47-70); Platelet Count 393 K/mm3 (150-450); RBC Distribution Width CV 14.1 % (11.6-14.6); RBC Distribution Width SD 44.2 fl (35.1-43.9); Red Blood Count 4.45 M/mm3 (4.2-5.4); White Blood Count 12.2 K/mm3 (4.4-11.0)
[2020-11-23 07:15] LABS: Anion Gap 8 (5-15); BUN 11 mg/dL (7-18); BUN/Creat Ratio 14.2 RATIO (10-20); Calcium,Total 7.6 mg/dL (8.5-10.1); Chloride 105 mmol/L (98-107); Creatinine, Serum 0.78 mg/dL (0.55-1.02); EST Glomerular Filtration Rate 85 mL/min (>60); Est Glom Filt Rate - Afr Amer 103 mL/min (>60); Estimated Creatinine Clearance 64.73 ml/min; Glucose 128 mg/dL (74-106); Potassium 3.6 mmol/L (3.5-5.1); Sodium Level 136 mmol/L (136-145)
--- NOTE | 2020-11-23 15:05 | PCM.WORK.EX ---
Work/School Excuse Work/School Excuse for:: Patient Please excuse this person from:: Work From: 11/22/20 through: 12/08/20
--- NOTE | 2020-11-23 15:06 | DCINST_ITS ---
Discharge Diet: Light diet - advance as tolerated Discharge Activity: May Not Drive - for 3-5 days or while taking narcotic pain meds., May Shower Lifting Restrictions: 20 lbs for 2 weeks Call your doctor if your incision/area has: Continuous Slow Oozing, Sudden Increased Bleeding, Increased Pain/ Swelling, Increased Redness, Foul Smelling Discharge Call your doctor if you observe: Fever of 101 or Higher Suture Line Care: Avoid Pulling/Pushing, Avoid Pinching/Bending Additional Dressing/Incision Instructions:: Keep dressing clean and dry. Change or remove dressing in 2 days. Leave steri strips for 1 week. May protect with a gauze bandaid. Instructions: ED Hematuria Medications to take at Discharge Cider Vinegar [Apple Cider Vinegar] 1 capsule PO DAILY 11/22/20 [place]-3 Fatty Acids/Fish Oil [[place] 3 Fish Oil Softgel] 1 each PO QODAY 11/22/20 Acetaminophen [Tylenol Tablet] 650 mg PO Q4H PRN PRN tablet 11/23/20 Oxycodone [Oxyir] 5 - 10 mg PO Q4H PRN PRN 5 Days #30 tablet 11/23/20 Allergies/Adverse Reactions: Allergies No Known Allergies Allergy (Verified 11/22/20 12:11) The following prescriptions were given: Oxycodone [Oxyir] 5 - 10 mg PO Q4H PRN PRN 5 Days #30 tablet PRN Reason: Pain Score 4-10 Transmission Status: Sent to [facility] Primary Care Physician: Robert Claire MD [Primary Care Provider] - Test Results: Test results from this visit will be discussed in further detail at your follow- up appointment, if applicable. Please Follow Up With: Prosper Pete MD When: Please call to schedule 2 week follow up appointment. [phone]
== END 2020-11-23 17:55 | disposition home or self-care (01) ==
LOC: ED 16:02 → AC 16:11 → MS3 16:56 → AC 19:13 → MS3 19:13
PROVIDERS: Anesthesiology; Admitting Provider Surgery; Emergency Provider Emergency Medicine; PCP Family Medicine; Visit Provider Surgery
PROC: 0DTJ4ZZ Resection of Appendix, Percutaneous Endoscopic Approach (ICD-10-PCS; CPT 44970; principal; 2020-11-22 16:40)
DX: K35.80 Unspecified acute appendicitis (principal); R31.9 Hematuria, unspecified; D25.9 Leiomyoma of uterus, unspecified
CPT/HCPCS: 00840; 44970; 74177; 80048; 81001; 81025; 85025; 87426; 88304; 96361; 96374; 97802; 99218; 99251; 99285; J7030; J7120; Q9967; A4216; C1760; G0378; G0463; J2405